=== PATIENT | female | born 1945 | race Caucasian/White ===

== ENCOUNTER → 2017-05-06 | Outpatient (CLI) | payer MEDICARE, BC ==
[~2017-05-06] MED LIST: BUPIVACAINE MPF 0.25% 10 ML VIAL. ONE; LIDOCAINE 1% PF 30 ML VIAL. ONE
== END | disposition home or self-care (01) ==
LOC: SURG 09:43
PROVIDERS: ATTEND Anesthesiology Pain Medicine
DX: M79.1 Myalgia (principal); Z91.09 Other allergy status, other than to drugs and biological substances; I48.91 Unspecified atrial fibrillation; Z79.01 Long term (current) use of anticoagulants; Z98.890 Other specified postprocedural states
CPT/HCPCS: 20552; 99213; J2001; J3490